=== PATIENT | female | born 2000 | race Two or more races ===

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

== ENCOUNTER 2022-01-16 21:41 | Inpatient (IN) ==
[2022-01-16 21:59] VITALS: BMI 27.1
[2022-01-16] MEDS ORDERED: D5 1/2 NS 1,000 ML 1,000 ML IV ONE (22:14)
[2022-01-16 22:24] LABS: BILIRUBIN,URINE NEGATIVE (NEGATIVE); BLOOD/HEMOGLOBIN,URINE 5+ (NEGATIVE); GLUCOSE, URINE NEGATIVE (NEGATIVE); KETONES,URINE 1+ (NEGATIVE); LEUKOCYTE ESTERASE ,URINE 3+ (NEGATIVE); NITRITES,URINE NEGATIVE (NEGATIVE); PROTEIN,URINE 1+ (NEGATIVE); UROBILINOGEN,URINE 2+ (NORMAL)
[2022-01-16 22:34] LABS: APPEARANCE,URINE SLIGHTLY HAZY (CLEAR); BACTERIA,URINE 1+ /HPF (NEGATIVE); COLOR,URINE YELLOW (YELLOW); SPERM,URINE RARE /HPF (NEGATIVE); SQUAMOUS EPITHELIAL CELL,UR MODERATE /HPF (NEGATIVE)
[2022-01-16 22:36] LABS: BASOPHILS % (AUTO) 0.2 % (0.2-1.0); EOSINOPHILS # (AUTO) 0.1 x10^3/uL (0.0-0.2); HEMOGLOBIN 11.1 g/dL (12.0-16.0); LYMPHOCYTES # (AUTO) 1.9 X10^3/uL (1.3-2.9); MEAN CORPUSCULAR HEMOGLOBIN 29.5 pg (27.0-34.0); MEAN CORPUSCULAR HGB CONC 34.6 g/dL (33.0-35.0); MEAN CORPUSCULAR VOLUME 85.2 fL (80.0-100.0); MONOCYTES # (AUTO) 0.6 x10^3/uL (0.3-0.8); MONOCYTES % (AUTO) 7.6 % (0.0-13.0); NEUTROPHILS # (AUTO) 5.6 x10^3/uL (2.2-4.8); NEUTROPHILS % (AUTO) 68.2 % (42.0-75.0); RED BLOOD COUNT 3.75 X10^6/uL (3.5-5.4); RED CELL DISTRIBUTION WIDTH 18.1 % (11.6-16.5); WHITE BLOOD COUNT 8.2 X10^3/uL (3.6-10.0)
[2022-01-16 22:39] LABS: AMNISURE ROM TEST NO MEMBRANES RUPTURE (NO RUPTURE)
[2022-01-16 22:46] LABS: ALANINE AMINOTRANSFERASE 10 Units/L (12-78); ALBUMIN 2.5 g/dL (3.4-5.0); ALKALINE PHOSPHATASE 200 Units/L (45-150); ASPARTATE AMINO TRANSFERASE 19 Units/L (15-37); BLOOD UREA NITROGEN 9 mg/dL (7-18); CALCIUM 7.9 mg/dL (8.5-10.1); CARBON DIOXIDE 27.2 mmol/L (21-32); CHLORIDE 104 mmol/L (98-107); COR CA(FOR HYPOALB) 9.1 mg/dL (8.5-10.1); CREATININE 0.57 mg/dL (0.55-1.02); SODIUM 139 mmol/L (136-145); TOTAL PROTEIN 6.6 g/dL (6.4-8.2); eGFR NON BLACK RACES > 60 (>60)
[2022-01-16] MEDS ORDERED: D5 1/2 NS 1,000 ML 1,000 ML IV SCH ×2 (23:00→23:45)
[2022-01-16] MEDS ORDERED: PHENERGAN INJ 25 MG IM PRN (23:16)
[2022-01-16] MEDS ORDERED: D5 LR + PITOCIN 10 UNITS/L 10 UNITS/1,000 ML BAG IV PRN (23:16)
[2022-01-16] MEDS ORDERED: PITOCIN IVP ONE (23:16)
[2022-01-16] MEDS ORDERED: REGLAN INJ 10 MG VIAL IVP PRN (23:16)
[2022-01-16] MEDS ORDERED: STADOL INJ IVP PRN (23:18)
[2022-01-16] MEDS ORDERED: AMPICILLIN VIAL 2 GRAM ONE (23:22)
[2022-01-16] MEDS ORDERED: NS 100 ML IV 100 ML ONE (23:23)
[2022-01-16] MEDS ORDERED: BETADINE SOLN ONE (23:31)
[2022-01-16] MEDS ORDERED: D5 1/2 NS 1,000 mL + PITOCIN 20 UNITS/L IV 20 UNITS/1,000 ML BAG IV ONE (23:32)
[2022-01-16] MEDS ORDERED: AMPICILLIN VIAL 2 GRAM 2 G in NS 100 ML IV + SPIKE MINIBAG* 100 ML IV SCH (23:45)
[2022-01-17] MEDS ORDERED: AMPICILLIN VIAL 1 GRAM ONE (03:19)
[2022-01-17] MEDS ORDERED: NS 100 ML IV 100 ML ONE (03:19)
[2022-01-17] MEDS ORDERED: AMPICILLIN VIAL 1 GRAM 1 G in NS 50 ML IV + SPIKE MINIBAG* 50 ML IV SCH (04:00)
[2022-01-17] MEDS ORDERED: PHENERGAN INJ 25 MG IM PRN (06:59)
[2022-01-17] MEDS ORDERED: D5 1/2 NS 1,000 ML 1,000 ML with PITOCIN 20 UNITS IV SCH ×2 (07:00)
[2022-01-17] MEDS ORDERED: TORADOL 30 MG VIAL ONE (07:11)
[2022-01-17] MEDS ORDERED: MILK OF MAGNESIA PO PRN (07:50)
[2022-01-17] MEDS ORDERED: HYPERRHO S/D (or RHOGAM) IM PRN (07:50)
[2022-01-17] MEDS ORDERED: DERMOPLAST PAIN RELIEF SPRAY TOP PRN (07:50)
[2022-01-17] MEDS ORDERED: AMBIEN PO PRN (07:50)
[2022-01-17] MEDS ORDERED: AMPICILLIN VIAL 1 GRAM 1 G in NS 50 ML IV 50 ML IV SCH (08:00)
[2022-01-17] MEDS: PRENATAL PLUS PO SCH (09:50)
[2022-01-17] MEDS: MOTRIN TAB 800 MG PO PRN (21:20)
[2022-01-18] MEDS: MOTRIN TAB 800 MG PO PRN (00:38)
[2022-01-18 05:25] LABS: HEMOGLOBIN 10.2 g/dL (12.0-16.0)
--- NOTE | 2022-01-18 07:32 | NOTE.PROOB ---
progress Note OB- Subjective Data Subjective: No complaints, decreased lochia. Tolerating regular diet. No N/V. Ambulating well. No dysuria. Objective Data Result Diagrams: 01/18/22 04:41 01/16/22 22:20 Objective Data: CV= RRR no MRG Lungs=CTA Bilaterally Abd=(+) BS, soft, NTND, Fundus firm/NT/ at 2 cm below umbilicus. Ext=no edema, NT, no cords Assessment Assessment: ready for d/c Plan (1) Vaginal delivery: Plan: d/c home
[2022-01-18 08:00] VITALS: BP 106/71
[2022-01-18] MEDS: PRENATAL PLUS PO SCH (09:09)
== END 2022-01-18 11:00 | disposition home or self-care (01) | DRG 807 ==
LOC: ER 21:45 → LD 23:12 → MED/SURG 01-17 07:56
PROVIDERS: ADMIT Obstetrics & Gynecology Obstetrics; ATTEND Obstetrics & Gynecology
DX: Z20.822 Contact with and (suspected) exposure to COVID-19; O26.893 Other specified pregnancy related conditions, third trimester; Z37.0 Single live birth; O60.14X0 Preterm labor third trimester with preterm delivery third trimester, not applicable or unspecified; Z3A.36 36 weeks gestation of pregnancy